=== PATIENT | male | born 1935 | race Caucasian/White ===

== ENCOUNTER 2024-12-16 17:23 | Inpatient (IN) | payer OTHER ==
[2024-12-16] MEDS ORDERED: Cefepime 2 GM VIAL ONE (18:12)
[2024-12-16] MEDS ORDERED: Acetaminophen 500 MG TAB ONE (18:13)
[2024-12-16 18:21] LABS: Cocaine Metabolite Screen Negative (Negative); THC/Cannabinoid Screen Negative (Negative); Tricyclic Screen Negative (Negative)
[2024-12-16 18:29] LABS: #Basophils Less than 0.03 10x3/uL (0.0-0.2); #Eosinophils Less than 0.03 10x3/uL (0.0-0.5); #Monocytes 0.24 10x3/uL (0.0-1.1); #Neutrophils 4.85 10x3/uL (1.5-8.4); %Basophils 0.2 % (0.0-2.0); %Eosinophils 0.0 % (0.0-6.0); %Lymphocytes 6.6 % (18.0-47.0); %Monocytes 4.4 % (0.0-10.0); %Neutrophils 88.3 % (40.0-75.0); Hematocrit 40.5 % (38.8-50.0); Hemoglobin 13.7 g/dL (13.5-17.5); Mean Corpuscular Hemoglobin 30.4 pg (27.0-33.0); Mean Corpuscular Volume 90.0 fL (81.2-95.1); Platelet Count 68 10x3/uL (130-400); Red Blood Cell (RBC) Count 4.50 10x6/uL (4.32-5.72); White Blood Cell (WBC) Count 5.49 10x3/uL (3.5-10.5)
[2024-12-16 18:37] LABS: Acetaminophen Less than 10 mcg/mL (Less than 10); Magnesium 1.9 mg/dL (1.6-2.6); Salicylate Less than 8.0 mg/dL (Less than 8.0)
[2024-12-16 18:41] LABS: ALT (SGPT) 59 U/L (Less than 45); AST (SGOT) 106 U/L (11-34); Albumin 3.2 g/dL (3.1-4.5); Alkaline Phosphatase 53 U/L (40-110); Anion Gap 12 mmol/L (10-20); BUN (Urea Nitrogen) 24 mg/dL (8.4-25.7); Bilirubin, Total 0.6 mg/dL (0.3-1.2); CK (CPK) 1659 U/L (30-200); Calc. Creatinine Clearance 41 mL/min (70-130); Calcium 7.7 mg/dL (7.8-10.44); Carbon Dioxide 23 mmol/L (23-31); Chloride 102 mmol/L (98-107); Globulin 2.5 g/dL (2.4-3.5); Glucose 140 mg/dL (83-110); Potassium 4.1 mmol/L (3.5-5.1); Sodium 133 mmol/L (136-145)
[2024-12-16 19:04] LABS: MDiff Complete? YES; Platelet Adequacy Comment Appears Decreased; RBC Morphology Within Normal Limits
[2024-12-16 19:07] LABS: Troponin I 0.054 ng/mL (< 0.028)
[2024-12-16 19:10] LABS: Actual Bicarbonate (HCO3v) 20.3 mEq/L (22-28); Analyzer IN Cardio CS ER; Base Excess -1.7 mEq/L (-2 - +2); Calcium, Ionized (venous) 1.02 mmol/L (1.16-1.32); Chloride (VBG) 100 mmol/L (98-106); Hematocrit-VBG 44 % (42.0-52.0); Hemoglobin (Hb) 15.1 g/dL (12.6-17.4); Potassium (VBG) 3.98 mmol/L (3.70-5.30); Puncture Site Other Site; RapidComm Collect By Lab; Sodium 132 mmol/L (133-146)
[2024-12-16 20:15] LABS: Glucose, Urine (Dipstick) Normal (Negative); Leukocyte Negative (Negative); Protein, Urine (Dipstick) 100 mg/dl (Neg-Trace); Specific Gravity, Urine 1.020 (1.005-1.030)
[2024-12-16] MEDS ORDERED: Ondansetron PF 4 MG/2 ML Vial IVP PRN (20:48)
[2024-12-16 20:49] LABS: Bacteria/HPF 2+ HPF (None Seen); CAUTI Indications for Culture Fever or rigors; WBC/HPF 0-3 HPF (0-3)
[2024-12-16 20:54] LABS: Mucous/LPF 2+ LPF (<2+)
[2024-12-16 20:55] LABS: Urine Culture Reflex No No
[2024-12-16] MEDS ORDERED: Apixaban 5 MG TAB PO SCH (21:00)
[2024-12-16 21:32] LABS: Hematocrit 35.2 % (38.8-50.0); Hemoglobin 12.1 g/dL (13.5-17.5); Mean Corpuscular Hemoglobin 30.7 pg (27.0-33.0); Mean Corpuscular Volume 89.3 fL (81.2-95.1); Platelet Count 65 10x3/uL (150-450); Red Blood Cell (RBC) Count 3.94 10x6/uL (4.32-5.72); White Blood Cell (WBC) Count 6.05 10x3/uL (3.5-10.5)
[2024-12-16 21:47] LABS: MDiff Complete? YES; Platelet Adequacy Comment Appears Decreased
[2024-12-16] MEDS: VANCOMYCIN 1.75 GM/350 ML BAG 1.75 GM in Premix 1 BAG IVPB SCH (22:31)
[2024-12-16] MEDS: Apixaban 2.5 MG TAB PO SCH (22:42)
[2024-12-17 00:24] LABS: Troponin I 0.040 ng/mL (< 0.028)
[2024-12-17 03:40] LABS: Troponin I 0.043 ng/mL (< 0.028)
[2024-12-17 03:59] LABS: Platelet Count 60 10x3/uL (150-450)
[2024-12-17 04:14] LABS: Hematocrit 37.4 % (38.8-50.0); Hemoglobin 12.8 g/dL (13.5-17.5); MDiff Complete? YES; Mean Corpuscular Hemoglobin 31.4 pg (27.0-33.0); Mean Corpuscular Volume 91.7 fL (81.2-95.1); Platelet Adequacy Comment Appears Decreased; RBC Morphology Within Normal Limits; Red Blood Cell (RBC) Count 4.08 10x6/uL (4.32-5.72); Reflex for Review?? YES; White Blood Cell (WBC) Count 5.67 10x3/uL (3.5-10.5)
[2024-12-17 05:56] LABS: Vancomycin, Random 21.9 ug/mL (See Comment)
[2024-12-17 06:01] LABS: ALT (SGPT) 53 U/L (Less than 45); AST (SGOT) 86 U/L (11-34); Albumin 2.8 g/dL (3.1-4.5); Alkaline Phosphatase 49 U/L (40-110); Anion Gap 16 mmol/L (10-20); BUN (Urea Nitrogen) 25 mg/dL (8.4-25.7); Bilirubin, Total 0.4 mg/dL (0.3-1.2); Calc. Creatinine Clearance 36 mL/min (70-130); Calcium 7.5 mg/dL (7.8-10.44); Carbon Dioxide 18 mmol/L (23-31); Chloride 107 mmol/L (98-107); Globulin 2.6 g/dL (2.4-3.5); Glucose 139 mg/dL (83-110); Potassium 4.3 mmol/L (3.5-5.1); Sodium 137 mmol/L (136-145)
[2024-12-17 06:21] LABS: CK (CPK) 1204 U/L (30-200)
[2024-12-17] MEDS ORDERED: Metoprolol Succinate XL 50 MG ER.TAB PO SCH (09:52)
[2024-12-17] MEDS: Pantoprazole 40 MG DR.TAB PO SCH (10:09)
[2024-12-17] MEDS: Acetaminophen 325 MG TAB PO PRN (10:09)
[2024-12-17] MEDS: Metoprolol Succinate XL 50 MG ER.TAB PO SCH ×2 (10:10→21:43)
[2024-12-17] MEDS: Magnesium 2 GM/50 ML(in water) 2 GM in Premix 1 BAG IVPB SCH (10:23)
[2024-12-17] MEDS: QUEtiapine 25 MG TAB PO SCH (15:58)
[2024-12-17] MEDS: Vancomycin 1 GM in Sodium Chloride 0.9% 250 ML 250 ML IVPB SCH (20:09)
[2024-12-18 04:25] LABS: Hematocrit 33.4 % (38.8-50.0); Hemoglobin 11.3 g/dL (13.5-17.5); Mean Corpuscular Hemoglobin 30.3 pg (27.0-33.0); Mean Corpuscular Volume 89.5 fL (81.2-95.1); Platelet Count 54 10x3/uL (150-450); Red Blood Cell (RBC) Count 3.73 10x6/uL (4.32-5.72); White Blood Cell (WBC) Count 4.28 10x3/uL (3.5-10.5)
[2024-12-18 04:32] LABS: Vancomycin, Random 20.6 ug/mL (See Comment)
[2024-12-18 04:38] LABS: #Basophils Less than 0.03 10x3/uL (0.0-0.2); #Eosinophils Less than 0.03 10x3/uL (0.0-0.5); #Monocytes 0.10 10x3/uL (0.0-1.1); #Neutrophils 3.94 10x3/uL (1.5-8.4); %Basophils 0.2 % (0.0-2.0); %Eosinophils 0.2 % (0.0-6.0); %Lymphocytes 4.4 % (18.0-47.0); %Monocytes 2.3 % (0.0-10.0); %Neutrophils 92.2 % (40.0-75.0)
[2024-12-18 04:40] LABS: ALT (SGPT) 66 U/L (Less than 45); AST (SGOT) 88 U/L (11-34); Albumin 2.5 g/dL (3.1-4.5); Alkaline Phosphatase 57 U/L (40-110); Anion Gap 11 mmol/L (10-20); BUN (Urea Nitrogen) 27 mg/dL (8.4-25.7); Bilirubin, Total 0.4 mg/dL (0.3-1.2); CK (CPK) 497 U/L (30-200); Calc. Creatinine Clearance 36 mL/min (70-130); Calcium 7.4 mg/dL (7.8-10.44); Carbon Dioxide 18 mmol/L (23-31); Chloride 112 mmol/L (98-107); Globulin 2.3 g/dL (2.4-3.5); Glucose 116 mg/dL (83-110); Potassium 4.1 mmol/L (3.5-5.1); Sodium 137 mmol/L (136-145)
[2024-12-18] MEDS: Multivitamin W/ Minerals 1 TAB PO SCH (08:33)
[2024-12-18] MEDS ORDERED: Metoprolol Succinate XL 25 MG ER.TAB PO SCH (09:00)
[2024-12-18] MEDS: cefTRIAXone\\ROCEPHIN 2 GM in Sodium Chloride 0.9% 100 ML IVPB SCH (20:59)
[2024-12-18] MEDS: Metoprolol Succinate XL 50 MG ER.TAB PO SCH (21:00)
[2024-12-19 00:02] LABS: HBSAB Concentration Less than 8.00 mIU/mL; Hep A IgM AB NONREACTIVE (NonReactive); Hep A IgM S/CO 0.37 S/CO (0-0.79); Hep C IgG Ab NONREACTIVE S/CO (NonReactive); Hep C Index 0.06 S/CO (0-0.79)
[2024-12-19 01:12] LABS: Hep B Surf Ag Non-Reactive S/CO (NonReactive)
[2024-12-19 04:40] LABS: ALT (SGPT) 101 U/L (Less than 45); AST (SGOT) 137 U/L (11-34); Albumin 2.5 g/dL (3.1-4.5); Alkaline Phosphatase 107 U/L (40-110); Anion Gap 11 mmol/L (10-20); BUN (Urea Nitrogen) 28 mg/dL (8.4-25.7); Bilirubin, Total 0.4 mg/dL (0.3-1.2); CK (CPK) 319 U/L (30-200); Calc. Creatinine Clearance 38 mL/min (70-130); Calcium 7.4 mg/dL (7.8-10.44); Carbon Dioxide 22 mmol/L (23-31); Chloride 111 mmol/L (98-107); Globulin 2.6 g/dL (2.4-3.5); Glucose 135 mg/dL (83-110); Potassium 4.0 mmol/L (3.5-5.1); Sodium 140 mmol/L (136-145)
[2024-12-19 05:35] LABS: Platelet Count 46 10x3/uL (150-450)
[2024-12-19 05:36] LABS: Hematocrit 37.1 % (38.8-50.0); Hemoglobin 12.4 g/dL (13.5-17.5); Mean Corpuscular Hemoglobin 30.7 pg (27.0-33.0); Mean Corpuscular Volume 91.8 fL (81.2-95.1); Red Blood Cell (RBC) Count 4.04 10x6/uL (4.32-5.72); White Blood Cell (WBC) Count 5.10 10x3/uL (3.5-10.5)
[2024-12-19 05:57] LABS: Burr Cells MODERATE= 6-15 cells (100X) (0-1/hpf); MDiff Complete? YES; Platelet Adequacy Comment Appears Decreased; Poikilocytosis MODERATE=16-30 cells (100X) (0-5/hpf)
[2024-12-19 05:58] LABS: Reflex for Review?? YES
[2024-12-19] MEDS: Lidocaine 4% Topical Sol 50 ML BOT TOP SCH (07:58)
[2024-12-19] MEDS ORDERED: D5W IVPB SCH (11:30)
[2024-12-19] MEDS ORDERED: DILTIAZEM HCL IVPB SCH (11:30)
[2024-12-19] MEDS: Lansoprazole 3 MG/ML ORAL SUSPENSION PO SCH (12:26)
[2024-12-19] MEDS: Magnesium Sulfate/D5W 1 GM in Premix 1 BAG IVPB SCH (14:13)
[2024-12-19] MEDS: Furosemide 20 MG (2 mL) VIAL SLOW IVP SCH (14:13)
[2024-12-19] MEDS: Metoprolol Succinate XL 50 MG ER.TAB PO SCH (20:31)
[2024-12-20 05:35] LABS: Vancomycin, Random 14.7 ug/mL (See Comment)
[2024-12-20 05:46] LABS: ALT (SGPT) 99 U/L (Less than 45); AST (SGOT) 124 U/L (11-34); Albumin 2.5 g/dL (3.1-4.5); Alkaline Phosphatase 133 U/L (40-110); Anion Gap 14 mmol/L (10-20); BUN (Urea Nitrogen) 36 mg/dL (8.4-25.7); Bilirubin, Total 0.4 mg/dL (0.3-1.2); Calc. Creatinine Clearance 32 mL/min (70-130); Calcium 7.4 mg/dL (7.8-10.44); Carbon Dioxide 20 mmol/L (23-31); Chloride 112 mmol/L (98-107); Globulin 2.4 g/dL (2.4-3.5); Glucose 136 mg/dL (83-110); Magnesium 2.6 mg/dL (1.6-2.6); Potassium 4.0 mmol/L (3.5-5.1); Sodium 142 mmol/L (136-145)
[2024-12-20 06:33] LABS: Platelet Count 56 10x3/uL (150-450)
[2024-12-20 06:43] LABS: Hematocrit 36.3 % (38.8-50.0); Hemoglobin 12.4 g/dL (13.5-17.5); Mean Corpuscular Hemoglobin 30.7 pg (27.0-33.0); Mean Corpuscular Volume 89.9 fL (81.2-95.1); Red Blood Cell (RBC) Count 4.04 10x6/uL (4.32-5.72); White Blood Cell (WBC) Count 6.98 10x3/uL (3.5-10.5)
[2024-12-20 06:44] LABS: Burr Cells SLIGHT = 2-5 cells (100X) (0-1/hpf); MDiff Complete? YES; Ovalocytes SLIGHT = 2-5 cells (100X) (0-1/hpf); Platelet Adequacy Comment Appears Adequate; Poikilocytosis SLIGHT = 6-15 cells (100X) (0-5/hpf)
[2024-12-20] MEDS: Spironolactone 25 MG TAB PO SCH (09:12)
[2024-12-20] MEDS: Lansoprazole 3 MG/ML ORAL SUSPENSION PO SCH (11:17)
[2024-12-21 03:41] LABS: Hematocrit 34.3 % (38.8-50.0); Hemoglobin 12.1 g/dL (13.5-17.5); Mean Corpuscular Hemoglobin 31.1 pg (27.0-33.0); Mean Corpuscular Volume 88.2 fL (81.2-95.1); Platelet Count 60 10x3/uL (150-450); Red Blood Cell (RBC) Count 3.89 10x6/uL (4.32-5.72); White Blood Cell (WBC) Count 8.39 10x3/uL (3.5-10.5)
[2024-12-21 03:54] LABS: MDiff Complete? YES; Platelet Adequacy Comment Appears Decreased; RBC Morphology Within Normal Limits
[2024-12-21 04:08] LABS: ALT (SGPT) 103 U/L (Less than 45); AST (SGOT) 134 U/L (11-34); Albumin 2.6 g/dL (3.1-4.5); Alkaline Phosphatase 121 U/L (40-110); Anion Gap 14 mmol/L (10-20); BUN (Urea Nitrogen) 40 mg/dL (8.4-25.7); Bilirubin, Total 0.9 mg/dL (0.3-1.2); Calc. Creatinine Clearance 35 mL/min (70-130); Calcium 7.6 mg/dL (7.8-10.44); Carbon Dioxide 19 mmol/L (23-31); Chloride 114 mmol/L (98-107); Globulin 2.6 g/dL (2.4-3.5); Glucose 121 mg/dL (83-110); Potassium 3.3 mmol/L (3.5-5.1); Sodium 144 mmol/L (136-145)
[2024-12-21 12:35] LABS: Magnesium 2.5 mg/dL (1.6-2.6)
[2024-12-21] MEDS: Furosemide 40 MG (4 mL) VIAL SLOW IVP SCH (17:28)
[2024-12-21] MEDS: Mupirocin 1 GM TUBE TP SCH (21:18)
[2024-12-22 04:03] LABS: Anion Gap 13 mmol/L (10-20); BUN (Urea Nitrogen) 48 mg/dL (8.4-25.7); Calc. Creatinine Clearance 28 mL/min (70-130); Calcium 7.4 mg/dL (7.8-10.44); Carbon Dioxide 23 mmol/L (23-31); Chloride 116 mmol/L (98-107); Glucose 148 mg/dL (83-110); Potassium 3.0 mmol/L (3.5-5.1); Sodium 149 mmol/L (136-145)
[2024-12-22 08:35] VITALS: TEMP 98
[2024-12-22 11:18] VITALS: BP 120/59
[2024-12-22] MEDS: Potassium Chloride 20 MEQ in Premix 1 BAG IVPB SCH (12:25)
== END 2024-12-22 15:30 | disposition hospice, home (50) | DRG 871 ==
LOC: CSHERS 17:23 → SUATTDRO 17:23 → CSHTELE 20:11 → OBSVTOIN 12-18 09:19 → CSHICU 12-19 13:02
PROVIDERS: ADMIT Family Medicine; ATTEND Internal Medicine
PROC: 3E03329 Introduction of Other Anti-infective into Peripheral Vein, Percutaneous Approach (ICD-10-PCS; principal; 2024-12-16)
PROC: 05HY33Z Insertion of Infusion Device into Upper Vein, Percutaneous Approach (ICD-10-PCS; 2024-12-21)
DX: A41.9 Sepsis, unspecified organism (principal); G93.41 Metabolic encephalopathy; J69.0 Pneumonitis due to inhalation of food and vomit; J96.01 Acute respiratory failure with hypoxia; I50.23 Acute on chronic systolic (congestive) heart failure; E87.3 Alkalosis; I48.20 Chronic atrial fibrillation, unspecified; F03.911 Unspecified dementia, unspecified severity, with agitation; R65.20 Severe sepsis without septic shock; Z66 Do not resuscitate; E87.6 Hypokalemia; I34.0 Nonrheumatic mitral (valve) insufficiency; E78.00 Pure hypercholesterolemia, unspecified; D64.89 Other specified anemias; R13.10 Dysphagia, unspecified; Z60.2 Problems related to living alone; R79.82 Elevated C-reactive protein (CRP); I11.0 Hypertensive heart disease with heart failure; E86.9 Volume depletion, unspecified; Z98.890 Other specified postprocedural states; Z90.79 Acquired absence of other genital organ(s); Z87.891 Personal history of nicotine dependence; Z79.01 Long term (current) use of anticoagulants; Z79.899 Other long term (current) drug therapy; Z55.6 Problems related to health literacy
CPT/HCPCS: 36415; 51701; 70450; 71045; 80048; 80053; 80202; 80306; 80307; 81001; 82550; 82805; 83605; 83735; 83880; 84145; 84443; 84484; 85025; 85060; 86140; 86706; 86709; 86720; 86803; 87040; 87086; 87340; 87400; 87426; 87428; 93005; 93010; 93306; 94640; 94760; 94762; 96361; 96365; 96366; 96367; 96375; 96376; G0378; J0692; J0696; J1940; J2060; J2543; J3373; J3375; J3475; J3480; J7030; J7050; J7626